=== PATIENT | male | born 1980 | race Caucasian/White ===

== ENCOUNTER → 2016-08-30 | Outpatient (CLI) | payer BC ==
[~2016-08-30] MED LIST: HYDR-3511 PO; [UNRECOGNIZED DRUG - CODE] PO
[2016-08-30 10:08] LABS: CLARITY URINE CLEAR (CLEAR); COLOR URINE YELLOW (YELLOW); GLUCOSE URINE NEGATIVE (NEGATIVE); KETONES URINE NEGATIVE (NEGATIVE); LEUKOCYTE ESTERASE URINE NEGATIVE (NEGATIVE); NITRITE URINE NEGATIVE (NEGATIVE); OCCULT BLOOD URINE NEGATIVE (NEGATIVE); PROTEIN URINE NEGATIVE (NEGATIVE); SPECIFIC GRAVITY URINE 1.012 (1.005-1.030); UROBILINOGEN URINE 0.2 E.U./dL (0.2-1.0)
[2016-08-30 10:37] LABS: INDEX HEMOLYSI 1 (1-3)
[2016-08-30 10:38] LABS: ALANINE AMINOTRANSFERASE 17 IU/L (13-61); ANION GAP 11; CALCIUM 8.6 mg/dL (8.5-10.1); CARBON DIOXIDE 27 mEq/L (21-32); CHLORIDE 107 mEq/L (98-107); HDL CHOLESTEROL 40 mg/dL (40-59); INDEX HEMOLYSI 2 (1-3); INDEX ICTERIC 1 (1-4); INDEX LIPEMIC 1 (1-3); LDL CHOLESTEROL 118 mg/dL (5-100); THYROID STIMULATING HORMONE 0.61 uIU/mL (0.36-3.74); TRIGLYCERIDE 146 mg/dL (0-150); UREA NITROGEN BLOOD 11 mg/dL (7-21); URIC ACID 4.8 mg/dL (2.6-7.2); eGFR > 60 mL/min (>60)
[2016-08-30 10:52] LABS: VITAMIN B12 SERUM 550 pg/mL (211-911)
== END | disposition home or self-care (01) ==
LOC: LAB 09:39
PROVIDERS: ATTEND Internal Medicine
DX: Z00.00 Encounter for general adult medical examination without abnormal findings (principal)
CPT/HCPCS: 36415; 80053; 80061; 81003; 82306; 82607; 83036; 84443; 84550; 86900

== ENCOUNTER → 2016-10-13 | Outpatient (CLI) | payer BC | END | disposition home or self-care (01) | LOC: LAB 10:28 | PROVIDERS: ATTEND Internal Medicine | DX: E55.9 Vitamin D deficiency, unspecified (principal) | CPT/HCPCS: 82306 ==

== ENCOUNTER → 2017-03-28 | Outpatient (CLI) | payer BC ==
[2017-03-28 10:22] LABS: BASOPHILS % 1.3 % (0.0-2.0); EOSINOPHILS % 2.6 % (0.0-5.0); HEMATOCRIT. 42.3 % (42.0-52.0); HEMOGLOBIN. 14.3 g/dL (14.0-18.0); LYMPHOCYTES % 32.3 % (20.0-50.0); MEAN CORPUSCULAR HEMOGLOBIN 28.6 pg (28.0-32.0); MEAN CORPUSCULAR VOLUME 84.4 fL (80.0-94.0); MEAN PLATELET VOLUME 7.1 fl (7.4-10.4); MONOCYTES % 7.3 % (2.0-8.0); NEUTROPHILS % 56.5 % (40.0-76.0); PLATELET 189 x1000/uL (130-400); RED BLOOD CELL COUNT 5.01 mill/uL (4.7-6.1); RED CELL DISTRIBUTION WIDTH 13.7 % (11.6-14.6)
[2017-03-28 10:43] LABS: CARBON DIOXIDE 26 mEq/L (21-32); CHLORIDE 107 mEq/L (98-107); HDL CHOLESTEROL 37 mg/dL (40-59); LDL CHOLESTEROL 117 mg/dL (5-100)
== END | disposition home or self-care (01) ==
LOC: LAB 09:49
PROVIDERS: ATTEND Internal Medicine
DX: E55.9 Vitamin D deficiency, unspecified (principal); E78.5 Hyperlipidemia, unspecified
CPT/HCPCS: 36415; 80053; 80061; 82306; 85025

== ENCOUNTER → 2018-12-26 | Outpatient (CLI) | payer BC ==
[~2018-12-26] MED LIST changes: -HYDR-3511 PO; +HYDR-3512 PO
[2018-12-26 07:18] LABS: BASOPHILS % 1.2 % (0.0-2.0); EOSINOPHILS % 3.4 % (0.0-5.0); HEMATOCRIT. 43.3 % (42.0-52.0); HEMOGLOBIN. 14.9 g/dL (14.0-18.0); LYMPHOCYTES % 37.3 % (20.0-50.0); MEAN CORPUSCULAR HEMOGLOBIN 29.2 pg (28.0-32.0); MEAN CORPUSCULAR VOLUME 85.1 fL (80.0-94.0); MEAN PLATELET VOLUME 6.9 fl (7.4-10.4); MONOCYTES % 7.6 % (2.0-8.0); NEUTROPHILS % 50.5 % (40.0-76.0); PLATELET 190 x1000/uL (130-400); RED BLOOD CELL COUNT 5.09 mill/uL (4.7-6.1); RED CELL DISTRIBUTION WIDTH 13.9 % (11.6-14.6)
[2018-12-26 07:50] LABS: CHLORIDE 109 mEq/L (98-107)
[2018-12-26 07:51] LABS: FOLIC ACID (FOLATE) SERUM 13.5 ng/mL (>5.38)
[2018-12-26 08:12] LABS: LDL CHOLESTEROL 121 mg/dL (5-100)
[2018-12-26 08:13] LABS: HDL CHOLESTEROL 38 mg/dL (40-59)
[2018-12-26 08:16] LABS: T4 FREE 1.02 ng/dL (0.76-1.46)
[2018-12-26 08:17] LABS: TOTAL IRON BINDING CAPACITY 424 ug/dL (250-450)
== END | disposition home or self-care (01) ==
LOC: LAB 06:35
PROVIDERS: ATTEND Family Medicine Adult Medicine
DX: Z00.00 Encounter for general adult medical examination without abnormal findings (principal)
CPT/HCPCS: 36415; 80061; 82306; 82607; 82728; 82746; 83036; 83540; 83550; 84439; 84443; 84481

== ENCOUNTER → 2020-10-29 | Outpatient (CLI) | payer BC ==
[2020-10-29 07:47] LABS: BASOPHILS % 0.9 % (0.0-2.0); EOSINOPHILS % 2.8 % (0.0-5.0); HEMATOCRIT. 44.8 % (42.0-52.0); HEMOGLOBIN. 15.3 g/dL (14.0-18.0); LYMPHOCYTES % 33.3 % (20.0-50.0); MEAN CORPUSCULAR HEMOGLOBIN 29.6 pg (28.0-32.0); MEAN CORPUSCULAR VOLUME 86.4 fL (80.0-94.0); MEAN PLATELET VOLUME 7.2 fl (7.4-10.4); MONOCYTES % 7.5 % (2.0-8.0); NEUTROPHILS % 55.5 % (40.0-76.0); PLATELET 200 x1000/uL (130-400); RED BLOOD CELL COUNT 5.18 mill/uL (4.7-6.1); RED CELL DISTRIBUTION WIDTH 14.1 % (11.6-14.6)
[2020-10-29 07:57] LABS: CHLORIDE 107 mEq/L (98-107)
[2020-10-29 08:12] LABS: FOLIC ACID (FOLATE) SERUM 9.8 ng/mL (>5.38); LDL CHOLESTEROL 116 mg/dL (5-100)
[2020-10-29 08:13] LABS: TOTAL IRON BINDING CAPACITY 432 ug/dL (250-450)
[2020-10-29 08:14] LABS: HDL CHOLESTEROL 40 mg/dL (40-59)
[2020-10-29 08:16] LABS: T4 FREE 1.03 ng/dL (0.76-1.46)
[2020-10-29 10:50] LABS: PROSTRATE SPECIFIC AG TOTAL 0.35 ng/mL (0.0-4.0)
== END | disposition home or self-care (01) ==
LOC: LAB 07:02
PROVIDERS: ATTEND Family Medicine Adult Medicine
DX: Z00.00 Encounter for general adult medical examination without abnormal findings (principal); D64.9 Anemia, unspecified
CPT/HCPCS: 36415; 80053; 80061; 82306; 82607; 82728; 82746; 83036; 83540; 83550; 84153; 84439; 84443; 84481; 85025; G0103

== ENCOUNTER → 2022-11-02 | Outpatient (CLI) | payer BC | END | disposition home or self-care (01) | LOC: RAD 11:10 | PROVIDERS: ATTEND Family Medicine Adult Medicine | DX: N13.2 Hydronephrosis with renal and ureteral calculous obstruction (principal); N28.89 Other specified disorders of kidney and ureter | CPT/HCPCS: 74176 ==

== ENCOUNTER → 2022-11-02 | Outpatient (CLI) | payer BC ==
[2022-11-02 08:17] LABS: CHLORIDE 107 mEq/L (98-107)
[2022-11-02 08:23] LABS: CLARITY URINE CLEAR (CLEAR); COLOR URINE YELLOW (YELLOW); KETONES URINE NEGATIVE (NEGATIVE); LEUKOCYTE ESTERASE URINE NEGATIVE (NEGATIVE); NITRITE URINE NEGATIVE (NEGATIVE); OCCULT BLOOD URINE TRACE (NEGATIVE); PROTEIN URINE NEGATIVE (NEGATIVE); SPECIFIC GRAVITY URINE 1.004 (1.005-1.030); UROBILINOGEN URINE 0.2 E.U./dL (0.2-1.0)
[2022-11-02 08:34] LABS: BASOPHILS % 0.8 % (0.0-2.0); EOSINOPHILS % 1.7 % (0.0-5.0); HEMATOCRIT. 43.9 % (42.0-52.0); HEMOGLOBIN. 15.1 g/dL (14.0-18.0); LYMPHOCYTES % 29.4 % (20.0-50.0); MEAN CORPUSCULAR HEMOGLOBIN 29.1 pg (28.0-32.0); MEAN CORPUSCULAR VOLUME 84.6 fL (80.0-94.0); MEAN PLATELET VOLUME 7.3 fl (7.4-10.4); MONOCYTES % 6.5 % (2.0-8.0); NEUTROPHILS % 61.6 % (40.0-76.0); PLATELET 238 x1000/uL (130-400); RED BLOOD CELL COUNT 5.19 mill/uL (4.7-6.1)
[2022-11-02 08:35] LABS: HDL CHOLESTEROL 43 mg/dL (40-59); LDL CHOLESTEROL 137 mg/dL (5-100); T4 FREE 0.97 ng/dL (0.76-1.46); TOTAL IRON BINDING CAPACITY 464 ug/dL (250-450)
[2022-11-02 09:06] LABS: FOLIC ACID (FOLATE) SERUM 9.4 ng/mL (>5.38)
[2022-11-02 16:05] LABS: PROSTRATE SPECIFIC AG TOTAL 0.29 ng/mL (0.0-4.0)
== END | disposition home or self-care (01) ==
LOC: LAB 07:04
PROVIDERS: ATTEND Family Medicine Adult Medicine
DX: Z00.00 Encounter for general adult medical examination without abnormal findings (principal); I10 Essential (primary) hypertension; D50.9 Iron deficiency anemia, unspecified; E55.9 Vitamin D deficiency, unspecified
CPT/HCPCS: 36415; 80053; 80061; 81003; 82306; 82607; 82728; 82746; 83036; 83540; 83550; 84153; 84439; 84443; 84481; 85025; 85651; G0103

== ENCOUNTER → 2022-11-21 | Outpatient (CLI) | payer BC ==
[2022-11-21 08:02] LABS: BASOPHILS % 0.8 % (0.0-2.0); EOSINOPHILS % 3.1 % (0.0-5.0); HEMOGLOBIN. 15.8 g/dL (14.0-18.0); LYMPHOCYTES % 32.3 % (20.0-50.0); MEAN CORPUSCULAR HEMOGLOBIN 29.4 pg (28.0-32.0); MEAN CORPUSCULAR VOLUME 85.8 fL (80.0-94.0); MEAN PLATELET VOLUME 7.5 fl (7.4-10.4); MONOCYTES % 5.8 % (2.0-8.0); PLATELET 240 x1000/uL (130-400); RED BLOOD CELL COUNT 5.36 mill/uL (4.7-6.1); RED CELL DISTRIBUTION WIDTH 14.3 % (11.6-14.6)
[2022-11-21 08:08] LABS: CHLORIDE 108 mEq/L (98-107)
[2022-11-21 08:10] LABS: PARTIAL THROMBOPLASTIN TIME 29.4 sec (23.4-31.0); PROTHROMBIN TIME 10.7 sec (9.6-11.0)
[2022-11-21 08:29] LABS: HDL CHOLESTEROL 45 mg/dL (40-59); LDL CHOLESTEROL 122 mg/dL (5-100); T4 FREE 1.03 ng/dL (0.76-1.46)
[2022-11-21 08:36] LABS: CLARITY URINE CLEAR (CLEAR); COLOR URINE YELLOW (YELLOW); KETONES URINE NEGATIVE (NEGATIVE); LEUKOCYTE ESTERASE URINE NEGATIVE (NEGATIVE); NITRITE URINE NEGATIVE (NEGATIVE); OCCULT BLOOD URINE TRACE (NEGATIVE); PH URINE 6.5 (4.5-8.0); PROTEIN URINE NEGATIVE (NEGATIVE); SPECIFIC GRAVITY URINE 1.004 (1.005-1.030); UROBILINOGEN URINE 0.2 E.U./dL (0.2-1.0)
== END | disposition home or self-care (01) ==
LOC: RAD 07:15
PROVIDERS: ATTEND Family Medicine Adult Medicine
DX: Z01.818 Encounter for other preprocedural examination (principal)
CPT/HCPCS: 36415; 71045; 80053; 80061; 81003; 83036; 84439; 84443; 84481; 85025

== ENCOUNTER → 2022-11-29 | Day surgery (SDC) | payer BC ==
[~2022-11-29] VITALS: Ht 177.8 cm; Wt 84.8 kg
[~2022-11-29] MED LIST changes: +CEFAZOLIN SODIUM 1000MG/VIAL ONE; +FENTANYL CITRATE/PF 50MCG/ML 2ML VIAL ONE; +HYDROMORPHONE HCL/PF 2MG/ML CPJ IV PRN; +LABETALOL 5MG/ML SYR 20 MG/4 ML SYRINGE IV PRN; +LACTATED RINGERS 1,000 ML IV ONE; +LIDOCAINE HCL 1% 10 MG/ML 10ML VIAL ONE; +MEPERIDINE HCL/PF 25MG/ML CPJ IV PRN; +METO-539 PO; +MIDAZOLAM HCL 2 MG/2 ML VIAL ONE; +ONDANSETRON HCL 4MG/2ML INJ IV PRN
[2022-11-29 14:22] VITALS: BP 163/113; PULSE 62; RESP 16
== END | disposition home or self-care (01) ==
LOC: OR 10:35
PROVIDERS: ATTEND Specialist
DX: N13.2 Hydronephrosis with renal and ureteral calculous obstruction (principal); I10 Essential (primary) hypertension; Z79.899 Other long term (current) drug therapy; Z98.890 Other specified postprocedural states; Z82.49 Family history of ischemic heart disease and other diseases of the circulatory system
CPT/HCPCS: 52356; 74021; 93005; J3010; J0690; J3490 ×2; J2250; J2405; J1170; C2617; 76000

== ENCOUNTER → 2023-02-22 | Outpatient (CLI) | payer BC ==
[~2023-02-22] MED LIST changes: -CEFAZOLIN SODIUM 1000MG/VIAL ONE; -FENTANYL CITRATE/PF 50MCG/ML 2ML VIAL ONE; -HYDR-3512 PO; -HYDROMORPHONE HCL/PF 2MG/ML CPJ IV PRN; -LABETALOL 5MG/ML SYR 20 MG/4 ML SYRINGE IV PRN; -LACTATED RINGERS 1,000 ML IV ONE; -LIDOCAINE HCL 1% 10 MG/ML 10ML VIAL ONE; -MEPERIDINE HCL/PF 25MG/ML CPJ IV PRN; -MIDAZOLAM HCL 2 MG/2 ML VIAL ONE; -ONDANSETRON HCL 4MG/2ML INJ IV PRN; -[UNRECOGNIZED DRUG - CODE] PO
== END | disposition home or self-care (01) ==
LOC: LAB 09:04
PROVIDERS: ATTEND Family Medicine Adult Medicine
DX: Z12.5 Encounter for screening for malignant neoplasm of prostate (principal); E78.5 Hyperlipidemia, unspecified
CPT/HCPCS: 36415; 80061; 83036; 84153; G0103

== ENCOUNTER → 2023-06-22 | Outpatient (CLI) | payer BC ==
[2023-06-22 14:33] LABS: BASOPHILS % 0.6 % (0.0-2.0); HEMOGLOBIN. 13.4 g/dL (14.0-18.0); LYMPHOCYTES % 26.9 % (20.0-50.0); MEAN CORPUSCULAR HEMOGLOBIN 28.8 pg (28.0-32.0); MEAN CORPUSCULAR HGB CONC 33.6 g/dL (31.0-37.0); MEAN CORPUSCULAR VOLUME 85.7 fL (80.0-94.0); MONOCYTES % 9.7 % (2.0-8.0); NEUTROPHILS % 60.8 % (40.0-76.0); PLATELET 289 x1000/uL (130-400); RED BLOOD CELL COUNT 4.67 mill/uL (4.7-6.1); RED CELL DISTRIBUTION WIDTH 14.6 % (11.6-14.6); WHITE BLOOD COUNT 6.5 x1000/uL (4.5-11.0)
[2023-06-22 14:52] LABS: ALANINE AMINOTRANSFERASE 45 IU/L (10-49); AMYLASE 47 IU/L (30-118); ASPARTATE AMINOTRANSFERASE 35 IU/L (<34); BILIRUBIN TOTAL 0.9 mg/dL (0.1-1.0); CALCIUM 8.9 mg/dL (8.7-10.4); CARBON DIOXIDE 25 mEq/L (21-32); CHLORIDE 111 mEq/L (98-107); GLUCOSE 97 mg/dL (70-105); POTASSIUM 4.1 mEq/L (3.5-5.1); PROTEIN TOTAL 6.9 g/dL (6.0-8.3); SODIUM 142 mEq/L (136-145); UREA NITROGEN BLOOD 6 mg/dL (9-23)
== END | disposition home or self-care (01) ==
LOC: LAB 14:07
PROVIDERS: ATTEND Family Medicine Adult Medicine
DX: R10.84 Generalized abdominal pain (principal)
CPT/HCPCS: 36415; 80053; 82150; 85025

== ENCOUNTER → 2023-09-05 | Outpatient (CLI) | payer BC ==
[2023-09-05 09:09] LABS: BASOPHILS % 1.1 % (0.0-2.0); EOSINOPHILS % 2.4 % (0.0-5.0); HEMATOCRIT. 43.7 % (42.0-52.0); HEMOGLOBIN. 14.6 g/dL (14.0-18.0); LYMPHOCYTES % 37.5 % (20.0-50.0); MEAN CORPUSCULAR HEMOGLOBIN 28.9 pg (28.0-32.0); MEAN CORPUSCULAR HGB CONC 33.4 g/dL (31.0-37.0); MEAN CORPUSCULAR VOLUME 86.6 fL (80.0-94.0); MEAN PLATELET VOLUME 7.1 fl (7.4-10.4); MONOCYTES % 6.6 % (2.0-8.0); NEUTROPHILS % 52.4 % (40.0-76.0); PLATELET 226 x1000/uL (130-400); RED BLOOD CELL COUNT 5.04 mill/uL (4.7-6.1); RED CELL DISTRIBUTION WIDTH 14.2 % (11.6-14.6); WHITE BLOOD COUNT 5.2 x1000/uL (4.5-11.0)
[2023-09-05 10:02] LABS: ERYTHROCYTE SEDIMENTATION RATE 8 mm/hr (0-15)
[2023-09-05 10:04] LABS: ALANINE AMINOTRANSFERASE 14 IU/L (10-49); ALBUMIN 4.8 g/dL (3.2-4.8); ASPARTATE AMINOTRANSFERASE 23 IU/L (<34); BILIRUBIN TOTAL 1.4 mg/dL (0.1-1.0); CALCIUM 9.5 mg/dL (8.7-10.4); CARBON DIOXIDE 28 mEq/L (21-32); CHLORIDE 105 mEq/L (98-107); CHOLESTEROL 188 mg/dL (<200); GLUCOSE 97 mg/dL (70-105); HDL CHOLESTEROL 43 mg/dL (>55); IRON 88 ug/dL (65-175); LDL CHOLESTEROL 128 mg/dL (5-100); POTASSIUM 4.6 mEq/L (3.5-5.1); PROTEIN TOTAL 7.1 g/dL (6.0-8.3); SODIUM 139 mEq/L (136-145); T4 FREE 1.23 ng/dL (0.89-1.76); THYROID STIMULATING HORMONE 1.77 uIU/mL (0.55-4.78); TOTAL IRON BINDING CAPACITY 391 ug/dl (250-425); TRIGLYCERIDE 153 mg/dL (0-150); UREA NITROGEN BLOOD 9 mg/dL (9-23)
[2023-09-05 12:51] LABS: FERRITIN 25 ng/mL (22-322); FOLIC ACID (FOLATE) SERUM 18.59 ng/mL (>5.38); VITAMIN B12 SERUM 328 pg/mL (211-911)
== END | disposition home or self-care (01) ==
LOC: LAB 08:44
PROVIDERS: ATTEND Family Medicine Adult Medicine
DX: E78.5 Hyperlipidemia, unspecified (principal); E55.9 Vitamin D deficiency, unspecified; E07.9 Disorder of thyroid, unspecified
CPT/HCPCS: 36415; 80053; 80061; 82306; 82607; 82728; 82746; 83036; 83540; 83550; 83970; 84439; 84443; 84481; 85025; 85651

== ENCOUNTER → 2024-07-11 | Outpatient (CLI) | payer BC | END | disposition home or self-care (01) | LOC: RAD 08:47 | PROVIDERS: ATTEND Specialist | DX: N20.1 Calculus of ureter (principal); N28.89 Other specified disorders of kidney and ureter | CPT/HCPCS: 74021 ==

== ENCOUNTER → 2024-08-26 | Outpatient (CLI) | payer BC ==
[2024-08-27 09:09] LABS: PROSTATE SPECIFIC AG TOTAL 0.4 ng/mL (0.0-4.0)
[2024-08-27 10:11] LABS: PSA FREE 0.18 ng/mL
== END | disposition home or self-care (01) ==
LOC: LAB 08:33
PROVIDERS: ATTEND Specialist
DX: N20.1 Calculus of ureter (principal)
CPT/HCPCS: 84153; 84154; 84403

== ENCOUNTER → 2024-10-30 | Outpatient (CLI) | payer BC ==
[2024-10-30 08:18] LABS: BASOPHILS % 1.1 % (0.0-2.0); EOSINOPHILS % 3.4 % (0.0-5.0); HEMATOCRIT. 43.3 % (42.0-52.0); HEMOGLOBIN. 14.6 g/dL (14.0-18.0); LYMPHOCYTES % 37.1 % (20.0-50.0); MEAN CORPUSCULAR HEMOGLOBIN 28.8 pg (28.0-32.0); MEAN CORPUSCULAR HGB CONC 33.7 g/dL (31.0-37.0); MEAN CORPUSCULAR VOLUME 85.4 fL (80.0-94.0); MONOCYTES % 6.5 % (2.0-8.0); NEUTROPHILS % 51.9 % (40.0-76.0); PLATELET 204 x1000/uL (130-400); RED BLOOD CELL COUNT 5.07 mill/uL (4.7-6.1); RED CELL DISTRIBUTION WIDTH 13.5 % (11.6-14.6); WHITE BLOOD COUNT 4.9 x1000/uL (4.5-11.0)
[2024-10-30 08:27] LABS: CHLORIDE 106 mEq/L (98-107); POTASSIUM 4.4 mEq/L (3.5-5.1); SODIUM 142 mEq/L (136-145)
[2024-10-30 08:28] LABS: CALCIUM 9.4 mg/dL (8.7-10.4); CARBON DIOXIDE 24 mEq/L (21-32)
[2024-10-30 08:30] LABS: CLARITY URINE CLEAR (CLEAR); COLOR URINE YELLOW (YELLOW); GLUCOSE URINE NEGATIVE (NEGATIVE); KETONES URINE NEGATIVE (NEGATIVE); LEUKOCYTE ESTERASE URINE NEGATIVE (NEGATIVE); NITRITE URINE NEGATIVE (NEGATIVE); OCCULT BLOOD URINE NEGATIVE (NEGATIVE); PROTEIN URINE NEGATIVE (NEGATIVE); SPECIFIC GRAVITY URINE 1.003 (1.005-1.030); UROBILINOGEN URINE 0.2 E.U./dL (0.2-1.0)
[2024-10-30 08:33] LABS: GLUCOSE 98 mg/dL (70-105); TRIGLYCERIDE 136 mg/dL (0-150); UREA NITROGEN BLOOD 11 mg/dL (9-23)
[2024-10-30 08:34] LABS: ALBUMIN 4.9 g/dL (3.2-4.8); LDL CHOLESTEROL 120 mg/dL (5-100)
[2024-10-30 08:35] LABS: ALANINE AMINOTRANSFERASE 13 IU/L (10-49); ASPARTATE AMINOTRANSFERASE 19 IU/L (<34); BILIRUBIN TOTAL 1.6 mg/dL (0.1-1.0); CHOLESTEROL 173 mg/dL (<200); HDL CHOLESTEROL 37 mg/dL (>55)
[2024-10-30 08:36] LABS: PROTEIN TOTAL 7.5 g/dL (6.0-8.3); T4 FREE 1.33 ng/dL (0.89-1.76); THYROID STIMULATING HORMONE 1.52 uIU/mL (0.55-4.78)
[2024-10-30 08:37] LABS: FOLIC ACID (FOLATE) SERUM 11.55 ng/mL (>5.38)
[2024-10-30 08:38] LABS: FERRITIN 23 ng/mL (22-322); VITAMIN B12 SERUM 234 pg/mL (211-911)
[2024-10-30 08:46] LABS: ERYTHROCYTE SEDIMENTATION RATE 5 mm/hr (0-15)
[2024-10-30 08:53] LABS: IRON 99 ug/dL (65-175)
[2024-10-30 08:56] LABS: TOTAL IRON BINDING CAPACITY 391 ug/dl (250-425)
[2024-10-31 08:10] LABS: PROSTATE SPECIFIC AG TOTAL 0.4 ng/mL (0.0-4.0); VITAMIN D 25-OH 18.5 ng/mL (30.0-100.0)
== END | disposition home or self-care (01) ==
LOC: LAB 07:41
PROVIDERS: ATTEND Specialist
DX: I10 Essential (primary) hypertension (principal); E55.9 Vitamin D deficiency, unspecified; D50.9 Iron deficiency anemia, unspecified; Z00.00 Encounter for general adult medical examination without abnormal findings
CPT/HCPCS: 36415; 80053; 80061; 81003; 82306; 82607; 82728; 82746; 83036; 83540; 83550; 84153; 84439; 84443; 84481; 85025; 85651

== ENCOUNTER → 2024-12-04 | Outpatient (CLI) | payer BC ==
[~2024-12-04] MED LIST changes: +AMLO1TAB36 PO; +CHOL500010 PO
[2024-12-04 08:50] LABS: EOSINOPHILS % 3.5 % (0.0-5.0); HEMATOCRIT. 44.2 % (42.0-52.0); HEMOGLOBIN. 14.7 g/dL (14.0-18.0); MEAN CORPUSCULAR HEMOGLOBIN 28.8 pg (28.0-32.0); MEAN CORPUSCULAR HGB CONC 33.2 g/dL (31.0-37.0); MEAN CORPUSCULAR VOLUME 86.7 fL (80.0-94.0); MEAN PLATELET VOLUME 7.2 fl (7.4-10.4); MONOCYTES % 7.4 % (2.0-8.0); NEUTROPHILS % 56.1 % (40.0-76.0); PLATELET 206 x1000/uL (130-400)
[2024-12-04 08:53] LABS: CLARITY URINE CLEAR (CLEAR); COLOR URINE YELLOW (YELLOW); GLUCOSE URINE NEGATIVE (NEGATIVE); KETONES URINE NEGATIVE (NEGATIVE); LEUKOCYTE ESTERASE URINE NEGATIVE (NEGATIVE); NITRITE URINE NEGATIVE (NEGATIVE); OCCULT BLOOD URINE NEGATIVE (NEGATIVE); PROTEIN URINE NEGATIVE (NEGATIVE); SPECIFIC GRAVITY URINE 1.008 (1.005-1.030); UROBILINOGEN URINE 0.2 E.U./dL (0.2-1.0)
[2024-12-04 09:15] LABS: PARTIAL THROMBOPLASTIN TIME 27.1 sec (23.4-31.0); PROTHROMBIN TIME 10.4 sec (9.6-11.0)
[2024-12-04 09:18] LABS: CHLORIDE 106 mEq/L (98-107); POTASSIUM 4.6 mEq/L (3.5-5.1); SODIUM 141 mEq/L (136-145)
[2024-12-04 09:19] LABS: CARBON DIOXIDE 26 mEq/L (21-32)
[2024-12-04 09:20] LABS: CALCIUM 9.9 mg/dL (8.7-10.4); THYROID STIMULATING HORMONE 1.12 uIU/mL (0.55-4.78)
[2024-12-04 09:21] LABS: ALANINE AMINOTRANSFERASE 15 IU/L (10-49); T4 FREE 1.26 ng/dL (0.89-1.76)
[2024-12-04 09:24] LABS: CREATININE 1.1 mg/dL (0.6-1.3); GLUCOSE 102 mg/dL (70-105)
[2024-12-04 09:25] LABS: UREA NITROGEN BLOOD 14 mg/dL (9-23)
[2024-12-04 09:26] LABS: ALBUMIN 4.9 g/dL (3.2-4.8); ASPARTATE AMINOTRANSFERASE 22 IU/L (<34)
[2024-12-04 09:27] LABS: BILIRUBIN TOTAL 1.7 mg/dL (0.1-1.0); HDL CHOLESTEROL 41 mg/dL (>55); PROTEIN TOTAL 7.3 g/dL (6.0-8.3)
[2024-12-04 09:49] LABS: TRIGLYCERIDE 129 mg/dL (0-150)
[2024-12-04 09:50] LABS: LDL CHOLESTEROL 122 mg/dL (5-100)
[2024-12-04 09:51] LABS: CHOLESTEROL 170 mg/dL (<200)
== END | disposition home or self-care (01) ==
LOC: LAB 07:49
PROVIDERS: ATTEND Family Medicine Adult Medicine
DX: Z01.818 Encounter for other preprocedural examination (principal)
CPT/HCPCS: 36415; 71045; 80053; 80061; 81003; 83036; 84439; 84443; 84481; 85025

== ENCOUNTER → 2024-12-16 | Day surgery (SDC) | payer BC ==
[~2024-12-16] MED LIST changes: +DEXAMETHASONE 4MG/ML 1ML VIAL IV PRN; +FENTANYL CITRATE/PF 50MCG/ML 2ML VIAL ONE; +GLYCOPYRROLATE 0.2 MG/ML 2ML VIAL IV PRN; +HYDRALAZINE 20MG/ML VIAL IV PRN; +HYDROMORPHONE HCL/PF 1MG/ML INJ IV PRN; +LABETALOL 5MG/ML 4ML INJ IV PRN; +LACTATED RINGERS 1,000 ML IV SCH; -METO-539 PO; +ONDANSETRON HCL 4MG/2ML INJ IV PRN; +PROPOFOL 200MG/20ML VIAL IV ONE
== END | disposition home or self-care (01) ==
LOC: OR 05:56
PROVIDERS: ATTEND Specialist
DX: N20.0 Calculus of kidney (principal); I10 Essential (primary) hypertension; Z79.899 Other long term (current) drug therapy; Z98.890 Other specified postprocedural states; Z80.42 Family history of malignant neoplasm of prostate
CPT/HCPCS: 50590; J3010; J2704

== ENCOUNTER → 2024-12-23 | Outpatient (CLI) | payer BC ==
[~2024-12-23] MED LIST changes: -DEXAMETHASONE 4MG/ML 1ML VIAL IV PRN; -FENTANYL CITRATE/PF 50MCG/ML 2ML VIAL ONE; -GLYCOPYRROLATE 0.2 MG/ML 2ML VIAL IV PRN; -HYDRALAZINE 20MG/ML VIAL IV PRN; -HYDROMORPHONE HCL/PF 1MG/ML INJ IV PRN; -LABETALOL 5MG/ML 4ML INJ IV PRN; -LACTATED RINGERS 1,000 ML IV SCH; -ONDANSETRON HCL 4MG/2ML INJ IV PRN; -PROPOFOL 200MG/20ML VIAL IV ONE
== END | disposition home or self-care (01) ==
LOC: CT 09:55
PROVIDERS: ATTEND Family Medicine Adult Medicine
DX: Z13.6 Encounter for screening for cardiovascular disorders (principal); I25.10 Atherosclerotic heart disease of native coronary artery without angina pectoris; E78.5 Hyperlipidemia, unspecified
CPT/HCPCS: 75571

== ENCOUNTER → 2025-01-22 | Outpatient (CLI) | payer BC | END | disposition home or self-care (01) | LOC: RAD 08:31 | PROVIDERS: ATTEND Specialist | DX: N20.1 Calculus of ureter (principal); R10.9 Unspecified abdominal pain | CPT/HCPCS: 74019; 74021 ==

== ENCOUNTER → 2025-01-22 | Outpatient (CLI) | payer BC | END | disposition home or self-care (01) | LOC: US 08:27 | PROVIDERS: ATTEND Internal Medicine Gastroenterology | DX: N28.1 Cyst of kidney, acquired (principal); K76.0 Fatty (change of) liver, not elsewhere classified; R16.0 Hepatomegaly, not elsewhere classified; D50.9 Iron deficiency anemia, unspecified; I10 Essential (primary) hypertension | CPT/HCPCS: 76700 ==

== ENCOUNTER → 2025-04-27 | Outpatient (CLI) | payer BC ==
[2025-04-27 08:38] LABS: LDL CHOLESTEROL 95 mg/dL (5-100); TRIGLYCERIDE 107 mg/dL (0-150)
[2025-04-27 08:39] LABS: ASPARTATE AMINOTRANSFERASE 23 IU/L (<34)
[2025-04-27 08:40] LABS: BILIRUBIN DIRECT 0.5 mg/dL (<=3.0); BILIRUBIN TOTAL 1.7 mg/dL (0.1-1.0); PROTEIN TOTAL 7.2 g/dL (6.0-8.3)
== END | disposition home or self-care (01) ==
LOC: LAB 07:23
PROVIDERS: ATTEND Family Medicine Adult Medicine
DX: E78.5 Hyperlipidemia, unspecified (principal); R94.5 Abnormal results of liver function studies
CPT/HCPCS: 36415; 80061; 80076

== ENCOUNTER → 2025-04-27 | Outpatient (CLI) | payer BC ==
[2025-04-27 08:23] LABS: BILIRUBIN DIRECT 0.4 mg/dL (<=3.0)
== END | disposition home or self-care (01) ==
LOC: LAB 07:29
PROVIDERS: ATTEND Internal Medicine Gastroenterology
DX: I10 Essential (primary) hypertension (principal); D50.9 Iron deficiency anemia, unspecified; K75.9 Inflammatory liver disease, unspecified; K80.80 Other cholelithiasis without obstruction
CPT/HCPCS: 36415; 82248; 82977; 87340